=== PATIENT | male | born 1955 | race Caucasian/White ===

== ENCOUNTER 2021-05-22 08:00 | Inpatient (IN) ==
[2021-05-22] MEDS ORDERED: NITROGLYCERIN SL 0.4 MG TABLET SL PRN (09:50)
[2021-05-22] MEDS ORDERED: GLUCAGON 1 MG VIAL IM PRN (09:50)
[2021-05-22] MEDS ORDERED: CLORAZEPATE 3.75 MG TABLET PO PRN (09:50)
[2021-05-22] MEDS ORDERED: DEXTROSE 50% 25 GM/50 ML VIAL IV PRN (09:50)
[2021-05-22] MEDS ORDERED: MORPHINE 2 MG/1 ML SYRINGE IV PRN (09:50)
[2021-05-22 09:54] LABS: Basophils % 0.6 % (0.0-0.8); Eosinophils # 0.1 10*3/uL (0.0-0.87); Eosinophils % 1.4 % (0.00-10.9); Hematocrit 42.4 VOL% (42.0-52.0); Hemoglobin 14.3 GM/DL (14.0-18.0); Immature Granulocytes % 0.2 %; Immature Granulocytes Absolute 0.01 #; Lymphocytes # 1.9 10*3/uL (1.4-4.0); Lymphocytes % 37.4 % (21.2-54.2); Mean Corpuscular HGB Conc 33.7 GM/DL (32-36); Mean Platelet Volume 9.6 FL (9.6-12.0); Monocytes % 7.4 % (1.7-12.7); Platelet Count 118 T/CUMM (130-400); Red Blood Count 4.99 MC/CUMM (3.8-5.5); Red Cell Distribution Width 12.5 % (9.3-17.3); White Blood Count 5.1 T/CUMM (4-12)
[2021-05-22] MEDS ORDERED: SODIUM CHLORIDE 0.9% 1,000 ML IV SCH (10:00)
[2021-05-22 10:06] LABS: Albumin 3.6 G/DL (3.4-5.0); Bilirubin,Total 0.5 MG/DL (0.20-1.00); Calcium 9.1 MG/DL (8.5-10.1); Total Protein 7.1 G/DL (6.4-8.2)
[2021-05-22] MEDS: INSULIN REGULAR 100 UNIT/ML SUBCUT SCH ×4 (13:25→21:02)
[2021-05-22] MEDS: CHLORHEXIDINE 4% SOLN 118 ML BOTTLE TOP SCH ×3 (13:25→21:02)
[2021-05-22] MEDS: CHLORHEXIDINE 0.12% ORAL RINSE 60 ML BOTTLE SWISH/SPIT SCH ×2 (13:26→21:02)
[2021-05-22 16:56] LABS: ABG Base Excess 0.7 MMOL/L (-2.5-2.5); ABG Oxygen Saturation 95.9 % (95-100); ABG PCO2 39.3 MM HG (35-48); ABG PH 7.422 (7.35-7.45); ABG PO2 81.6 MM HG (80-95); ABG TCO2 26.2 MMOL/L (23-27)
[2021-05-23] MEDS ORDERED: PAPAVERINE 60 MG/2 ML VIAL ONE (04:20)
[2021-05-23] MEDS ORDERED: VANCOMYCIN 500 MG VIAL ONE (04:21)
[2021-05-23] MEDS ORDERED: VANCOMYCIN 1,000 MG VIAL ONE (04:21)
[2021-05-23] MEDS ORDERED: CEFUROXIME INJ 1,500 MG in SODIUM CHLORIDE 0.9% 100 ML IV ONE (05:00)
[2021-05-23] MEDS ORDERED: MINERAL OIL/PETROLATUM OPH OINT 3.5 GM TUBE ONE (05:47)
[2021-05-23] MEDS ORDERED: PHENYLEPHRINE DRIP 20 MG/250 ML PREMIX IV ONE (05:47)
[2021-05-23] MEDS ORDERED: LIDOCAINE 2% 5 ML VIAL ONE ×2 (05:47→10:26)
[2021-05-23] MEDS ORDERED: LACTATED RINGERS 1,000 ML IV ONE (05:47)
[2021-05-23] MEDS ORDERED: NITROGLYCERIN DRIP 50 MG/250 ML BOTTLE IV ONE (05:47)
[2021-05-23] MEDS ORDERED: CALCIUM CHLORIDE 1,000 MG/10 ML VIAL IV ONE ×2 (05:47→10:34)
[2021-05-23] MEDS ORDERED: SEVOFLURANE 1 UNIT/15 MINUTE INH ONE (05:47)
[2021-05-23] MEDS ORDERED: SODIUM CHLORIDE 0.9% 1,000 ML IV ONE (05:47)
[2021-05-23] MEDS ORDERED: FUROSEMIDE 20 MG/2 ML VIAL ONE ×2 (05:47→10:27)
[2021-05-23] MEDS ORDERED: VECURONIUM 10 MG VIAL IV ONE (05:47)
[2021-05-23] MEDS ORDERED: ePHEDrine 50 MG/ML VIAL ONE (05:47)
[2021-05-23] MEDS ORDERED: HEPARIN/NACL 0.9% 2 UNITS/ML 1,000 UNIT/500 ML BAG IV ONE (05:47)
[2021-05-23] MEDS ORDERED: AMINOCAPROIC ACID 5,000 MG/20 ML VIAL ONE (05:47)
[2021-05-23] MEDS ORDERED: ETOMIDATE 40 MG/20 ML VIAL IV ONE (05:47)
[2021-05-23] MEDS ORDERED: SODIUM CHLORIDE 0.9% 250 ML IV ONE (05:47)
[2021-05-23] MEDS ORDERED: SUFentanil 250 MCG/5 ML AMP ONE (05:48)
[2021-05-23] MEDS ORDERED: MIDAZOLAM 10 MG/2 ML VIAL ONE ×3 (05:48)
[2021-05-23] MEDS ORDERED: FAMOTIDINE 20 MG TABLET PO ONE (06:00)
[2021-05-23] MEDS ORDERED: DIAZEPAM 5 MG TABLET PO ONE (06:00)
[2021-05-23] MEDS ORDERED: SODIUM BICARBONATE 50 MEQ/50 ML VIAL IV ONE ×2 (07:13→10:27)
[2021-05-23] MEDS ORDERED: CALCIUM CHLORIDE 1,000 MG/10 ML SYRINGE IV ONE (07:14)
[2021-05-23] MEDS ORDERED: POTASSIUM CHLORIDE RIDER 20 MEQ/100 ML PREMIX IV ONE (07:14)
[2021-05-23] MEDS ORDERED: NITROPRUSSIDE 50 MG/2 ML VIAL ONE (07:14)
[2021-05-23] MEDS ORDERED: PHENYLEPHRINE DRIP 40 MG/250 ML PREMIX IV ONE (07:14)
[2021-05-23 07:38] LABS: ABG Base Excess 0.8 MMOL/L (-2.5-2.5); ABG HCO3 25.2 MMOL/L (20-26); ABG PCO2 38.7 MM HG (35-48); ABG TCO2 21.4 MMOL/L (23-27); Glucose Heart Surgery 190 MG/DL (74-106); Hematocrit Heart Surgery 44.8 PERCENT (42-52); Hemoglobin Heart Surgery 14.6 G/DL (14.0-18.0); Ionized Calcium Arterial 1.18 MMOL/L (1.21-1.46); PCO2 Patient Temp Arterial 38.7 MMHG; Patient Temperature 37 CELCIUS; Sodium Heart/CVR 138 MMOL/L (135-145)
[2021-05-23 07:56] LABS: Bacteria,Urine Occasional /HPF (Few); Bilirubin,Urine Negative (Negative); Blood, Urine Small mg/dL (Negative); Glucose,Urine (UA) Negative (Negative); Ketones,Urine Negative (Negative); Mucus,Urine Occasional /LPF (Occasional); Nitrite,Urine Negative (Negative); Protein,Urine Negative; RBC,Urine 5 /HPF (0-4); Squamous Epithelial Cell,Urine Few /HPF (0-10); Urine Appearance CLEAR (Clear); Urine Color Yellow (Yellow); Urine Urobilinogen < 2.0 EU/DL (0.2-1.0)
[2021-05-23] MEDS ORDERED: ALBUMIN 5% 12.5 GM/250 ML VIAL IV ONE (07:59)
[2021-05-23] MEDS: CHLORHEXIDINE 0.12% ORAL RINSE 60 ML BOTTLE SWISH/SPIT SCH ×2 (08:05→20:49)
[2021-05-23] MEDS: INSULIN REGULAR 100 UNIT/ML SUBCUT SCH ×2 (08:05→11:48)
[2021-05-23] MEDS ORDERED: PHENYLEPHRINE 10 MG/1 ML VIAL IV ONE (09:02)
[2021-05-23 09:10] LABS: Hematocrit Heart Surgery 29.5 PERCENT (42-52); Hemoglobin Heart Surgery 9.5 G/DL (14.0-18.0); PCO2 Patient Temp Venous 38.3 MM HG; PH Patient Temp Venous 7.422; PO2 Patient Temp Venous 36.7 MM HG; Potassium Heart/CVR 4.1 MMOL/L (3.5-5.1); VBG Base Excess 0.7 MEQ/L (0-4); VBG HCO3 24.7 MEQ/L (24-28); VBG Oxygen Saturation 76.7 %; VBG PCO2 42.2 MMHG (41-51); VBG PH 7.393; VBG PO2 42.2 MMHG (17-40); VBG Total CO2 23.7 MMOL/L
[2021-05-23 09:40] LABS: Hematocrit Heart Surgery 31.8 PERCENT (42-52); Hemoglobin Heart Surgery 10.3 G/DL (14.0-18.0); PCO2 Patient Temp Venous 38.6 MM HG; PH Patient Temp Venous 7.421; PO2 Patient Temp Venous 38.3 MM HG; Potassium Heart/CVR 4.7 MMOL/L (3.5-5.1); VBG Base Excess 0.7 MEQ/L (0-4); VBG HCO3 24.6 MEQ/L (24-28); VBG Oxygen Saturation 72.6 %; VBG PCO2 38.6 MMHG (41-51); VBG PH 7.421; VBG PO2 38.3 MMHG (17-40); VBG Total CO2 22.8 MMOL/L
[2021-05-23 10:23] LABS: ABG Base Excess -0.2 MMOL/L (-2.5-2.5); ABG HCO3 24.3 MMOL/L (20-26); ABG PCO2 36.7 MM HG (35-48); ABG PH 7.423 (7.35-7.45); ABG TCO2 21.3 MMOL/L (23-27); Glucose Heart Surgery 302 MG/DL (74-106); Hemoglobin Heart Surgery 11.3 G/DL (14.0-18.0); Ionized Calcium Arterial 1.25 MMOL/L (1.21-1.46); PCO2 Patient Temp Arterial 36.7 MMHG; PH Patient Temp Arterial 7.423; Patient Temperature 37 CELCIUS; Sodium Heart/CVR 134 MMOL/L (135-145)
[2021-05-23] MEDS ORDERED: ALBUMIN 25% 25 GM/100 ML VIAL IV ONE (10:25)
[2021-05-23] MEDS ORDERED: DEXTROSE 5% KCL 20 MEQ 20 MEQ/1,000 ML BAG IV ONE (10:26)
[2021-05-23] MEDS ORDERED: methylPREDNISolone SOD SUC 1,000 MG/8 ML VIAL ONE (10:26)
[2021-05-23] MEDS ORDERED: MAGNESIUM SULFATE 5 GM/10 ML VIAL IV ONE (10:26)
[2021-05-23] MEDS ORDERED: PROTAMINE SULFATE 250 MG/25 ML VIAL IV ONE (10:26)
[2021-05-23] MEDS ORDERED: HEPARIN 10,000 UNIT/10 ML VIAL ONE (10:27)
[2021-05-23] MEDS ORDERED: MANNITOL 12.5 GM/50 ML VIAL IV ONE (10:27)
[2021-05-23] MEDS ORDERED: PROTAMINE SULFATE 50 MG/5 ML VIAL IV ONE (10:27)
[2021-05-23] MEDS ORDERED: MAGNESIUM SULF RIDER 4 GM/100 ML PREMIX IV PRN (11:31)
[2021-05-23] MEDS ORDERED: ACETAMINOPHEN 650 MG SUPP RECTAL PRN (11:31)
[2021-05-23] MEDS ORDERED: ONDANSETRON 4 MG/2 ML VIAL IV PRN (11:31)
[2021-05-23] MEDS ORDERED: MIDAZOLAM 2 MG/2 ML VIAL IV PRN (11:31)
[2021-05-23] MEDS ORDERED: DEXTROSE 50% 25 GM/50 ML VIAL IV PRN ×2 (11:31)
[2021-05-23] MEDS ORDERED: INSULIN REGULAR 100 UNIT/ML IV ONE (11:31)
[2021-05-23] MEDS ORDERED: MAGNESIUM SULF RIDER 2 GM/50 ML PREMIX IV PRN (11:31)
[2021-05-23] MEDS ORDERED: MORPHINE 10 MG/1 ML VIAL IV PRN (11:31)
[2021-05-23] MEDS ORDERED: CALCIUM CHLORIDE 1,000 MG/10 ML SYRINGE IV PRN (11:31)
[2021-05-23] MEDS ORDERED: POTASSIUM CHLORIDE RIDER 10 MEQ/100 ML PREMIX IV PRN (11:31)
[2021-05-23] MEDS ORDERED: MIDAZOLAM 10 MG/2 ML VIAL IV PRN (11:31)
[2021-05-23] MEDS ORDERED: LACTATED RINGERS 250 ML IV PRN (11:31)
[2021-05-23] MEDS ORDERED: NITROPRUSSIDE 100 MG in DEXTROSE 5% 250 ML IV PRN (11:31)
[2021-05-23] MEDS ORDERED: VECURONIUM 10 MG VIAL IV PRN ×2 (11:31)
[2021-05-23] MEDS ORDERED: PHENYLEPHRINE DRIP 40 MG/250 ML PREMIX IV PRN (11:31)
[2021-05-23 11:35] LABS: Basophils % 0.2 % (0.0-0.8); Eosinophils % 0.3 % (0.00-10.9); Hematocrit 34.4 VOL% (42.0-52.0); Hemoglobin 11.8 GM/DL (14.0-18.0); Immature Granulocytes % 0.7 %; Immature Granulocytes Absolute 0.06 #; Mean Corpuscular HGB Conc 34.3 GM/DL (32-36); Mean Corpuscular Volume 83.1 FL (87-102); Mean Platelet Volume 9.2 FL (9.6-12.0); Monocytes % 5.9 % (1.7-12.7); Neutrophils % 81.9 % (38.7-73.9); Platelet Count 107 T/CUMM (130-400); Red Blood Count 4.14 MC/CUMM (3.8-5.5); Red Cell Distribution Width 12.6 % (9.3-17.3); White Blood Count 8.6 T/CUMM (4-12)
[2021-05-23 11:36] LABS: ABG Base Excess 0.6 MMOL/L (-2.5-2.5); ABG HCO3 23.6 MMOL/L (20-26); ABG Oxygen Saturation 98.9 % (95-100); ABG PCO2 32.9 MM HG (35-48); ABG PH 7.474 (7.35-7.45); ABG PO2 192.8 MM HG (80-95); ABG TCO2 24.6 MMOL/L (23-27); Glucose Heart Surgery 268 MG/DL (74-106); Hemoglobin Heart Surgery 12.5 G/DL (14.0-18.0); Potassium Heart/CVR 3.8 MMOL/L (3.5-5.1)
[2021-05-23] MEDS: SODIUM CHLORIDE 0.45% 1,000 ML IV SCH ×2 (11:45→11:46)
[2021-05-23] MEDS: POTASSIUM CHLORIDE RIDER 20 MEQ/100 ML PREMIX IV PRN ×2 (11:46→16:22)
[2021-05-23 11:47] LABS: INR 1.1; PT Patient Result 12.3 SECS (10.5-12.0); Partial Thromboplastin Time 24.2 SECS (23.8-32.1)
[2021-05-23 11:57] LABS: Bilirubin,Total 1.2 MG/DL (0.20-1.00); CKMB % 7.2 %; Calcium 10.3 MG/DL (8.5-10.1); Osmolality,Calculated 283.8 MOS/KG (273-304); Potassium 3.8 MMOL/L (3.5-5.1); Total Protein 6.4 G/DL (6.4-8.2)
[2021-05-23 12:13] LABS: High Sensitive Troponin I* 3951.7 ng/L (0-78)
[2021-05-23] MEDS: INSULIN REGULAR DRIP 100 ML IV SCH ×2 (12:24→21:31)
[2021-05-23] MEDS: KETOROLAC 30 MG/1 ML VIAL IV SCH ×3 (12:32→23:38)
[2021-05-23] MEDS: ALBUMIN 5% 12.5 GM/250 ML VIAL IV PRN ×2 (12:55→22:28)
[2021-05-23] MEDS: LACTATED RINGERS 1,000 ML IV PRN ×2 (13:10→23:00)
[2021-05-23 13:26] LABS: ABG Base Excess -0.4 MMOL/L (-2.5-2.5); ABG HCO3 24.1 MMOL/L (20-26); ABG Oxygen Saturation 99.3 % (95-100); ABG PCO2 34.8 MM HG (35-48); ABG PH 7.434 (7.35-7.45); ABG TCO2 20.5 MMOL/L (23-27); Glucose Heart Surgery 301 MG/DL (74-106); Hemoglobin Heart Surgery 12.4 G/DL (14.0-18.0); Potassium Heart/CVR 4.2 MMOL/L (3.5-5.1)
[2021-05-23 16:09] LABS: ABG Base Excess -2.1 MMOL/L (-2.5-2.5); ABG HCO3 21.4 MMOL/L (20-26); ABG Oxygen Saturation 98.2 % (95-100); ABG PCO2 32.6 MM HG (35-48); ABG PH 7.436 (7.35-7.45); ABG PO2 147.6 MM HG (80-95); ABG TCO2 22.4 MMOL/L (23-27); Glucose Heart Surgery 218 MG/DL (74-106); Hemoglobin Heart Surgery 11.4 G/DL (14.0-18.0); Potassium Heart/CVR 3.6 MMOL/L (3.5-5.1)
[2021-05-23 17:26] LABS: ABG Base Excess -3.3 MMOL/L (-2.5-2.5); ABG HCO3 21.6 MMOL/L (20-26); ABG Oxygen Saturation 98.5 % (95-100); ABG PCO2 39.2 MM HG (35-48); ABG PH 7.355 (7.35-7.45); ABG TCO2 19.8 MMOL/L (23-27); Glucose Heart Surgery 209 MG/DL (74-106); Hematocrit Heart Surgery 33.1 PERCENT (42-52); Hemoglobin Heart Surgery 10.7 G/DL (14.0-18.0); Potassium Heart/CVR 4.4 MMOL/L (3.5-5.1)
[2021-05-23] MEDS: INSULIN REGULAR 100 UNIT/ML IV PRN (20:36)
[2021-05-23] MEDS: CEFUROXIME INJ 1,500 MG in SODIUM CHLORIDE 0.9% 100 ML IV SCH (20:49)
[2021-05-23 20:55] LABS: CKMB % 6.2 %
[2021-05-23 21:03] LABS: High Sensitive Troponin I* 9923.6 ng/L (0-78)
[2021-05-23] MEDS ORDERED: FUROSEMIDE 40 MG/4 ML VIAL IV ONE (22:28)
[2021-05-24] MEDS: INSULIN REGULAR 100 UNIT/ML IV PRN ×2 (00:44→02:40)
[2021-05-24 04:23] LABS: ABG Base Excess 0.4 MMOL/L (-2.5-2.5); ABG HCO3 23.9 MMOL/L (20-26); ABG Oxygen Saturation 95.3 % (95-100); ABG PCO2 34.3 MM HG (35-48); ABG PH 7.461 (7.35-7.45); ABG PO2 76.9 MM HG (80-95); Glucose Heart Surgery 144 MG/DL (74-106); Hemoglobin Heart Surgery 10.2 G/DL (14.0-18.0); Potassium Heart/CVR 3.9 MMOL/L (3.5-5.1)
[2021-05-24 04:25] LABS: Basophils % 0.1 % (0.0-0.8); Hematocrit 27.7 VOL% (42.0-52.0); Immature Granulocytes Absolute 0.12 #; Lymphocytes # 1.1 10*3/uL (1.4-4.0); Lymphocytes % 9.2 % (21.2-54.2); Mean Corpuscular HGB Conc 34.3 GM/DL (32-36); Mean Corpuscular Volume 83.9 FL (87-102); Mean Platelet Volume 9.1 FL (9.6-12.0); Monocytes % 5.7 % (1.7-12.7); Platelet Count 88 T/CUMM (130-400); Red Cell Distribution Width 12.8 % (9.3-17.3)
[2021-05-24 04:28] LABS: Hemoglobin 9.5 GM/DL (14.0-18.0); White Blood Count 12.2 T/CUMM (4-12)
[2021-05-24 04:47] LABS: Albumin 3.9 G/DL (3.4-5.0); Bilirubin,Direct 0.19 MG/DL (0.0-0.20); Bilirubin,Total 0.7 MG/DL (0.20-1.00); Calcium 8.7 MG/DL (8.5-10.1); Osmolality,Calculated 278.7 MOS/KG (273-304); Total Protein 6.2 G/DL (6.4-8.2)
[2021-05-24 04:49] LABS: CKMB % 7.3 %; High Sensitive Troponin I* 11057.6 ng/L (0-78)
[2021-05-24 04:55] LABS: Band Neutrophils 5 % (0-10); Lymphocytes 12 % (20-55); Segmented Neutrophils 77 % (50-85); Total Cells Counted 100
[2021-05-24 04:58] LABS: Microcytosis 2+
[2021-05-24 04:59] LABS: Anisocytosis 2+; Hypochromasia 1+; Platelet Estimate Decreased
[2021-05-24] MEDS: KETOROLAC 30 MG/1 ML VIAL IV SCH ×3 (06:14→18:52)
[2021-05-24] MEDS: CEFUROXIME INJ 1,500 MG in SODIUM CHLORIDE 0.9% 100 ML IV SCH ×2 (06:34→20:43)
[2021-05-24] MEDS ORDERED: MORPHINE 2 MG/1 ML SYRINGE ONE (11:35)
[2021-05-24 11:40] LABS: CKMB % 7.5 %
[2021-05-24 11:41] LABS: High Sensitive Troponin I* 12910.3 ng/L (0-78)
[2021-05-24] MEDS: CHLORHEXIDINE 0.12% ORAL RINSE 60 ML BOTTLE SWISH/SPIT SCH ×2 (13:13→20:58)
[2021-05-24] MEDS: SODIUM CHLORIDE 0.45% 1,000 ML IV SCH ×2 (13:13)
[2021-05-24] MEDS: INSULIN REGULAR DRIP 100 ML IV SCH (13:14)
[2021-05-24] MEDS: INSULIN REGULAR 100 UNIT/ML SUBCUT SCH (20:57)
[2021-05-25] MEDS: KETOROLAC 30 MG/1 ML VIAL IV SCH ×5 (00:46→23:54)
[2021-05-25] MEDS: INSULIN REGULAR 100 UNIT/ML SUBCUT SCH ×6 (00:46→20:22)
[2021-05-25 04:33] LABS: Basophils % 0.1 % (0.0-0.8); Hematocrit 26.6 VOL% (42.0-52.0); Hemoglobin 8.8 GM/DL (14.0-18.0); Immature Granulocytes % 0.7 %; Immature Granulocytes Absolute 0.08 #; Lymphocytes # 1.8 10*3/uL (1.4-4.0); Lymphocytes % 16.1 % (21.2-54.2); Mean Corpuscular HGB Conc 33.1 GM/DL (32-36); Mean Corpuscular Volume 87.8 FL (87-102); Mean Platelet Volume 9.8 FL (9.6-12.0); Monocytes % 7.4 % (1.7-12.7); Neutrophils % 75.7 % (38.7-73.9); Platelet Count 82 T/CUMM (130-400); Red Blood Count 3.03 MC/CUMM (3.8-5.5); Red Cell Distribution Width 13.1 % (9.3-17.3)
[2021-05-25 04:55] LABS: Hypochromasia 1+; Microcytosis 1+; Platelet Estimate Decreased
[2021-05-25 05:10] LABS: Albumin 3.3 G/DL (3.4-5.0); Bilirubin,Direct 0.18 MG/DL (0.0-0.20); Bilirubin,Total 1.1 MG/DL (0.20-1.00); Calcium 8.7 MG/DL (8.5-10.1); Potassium 4.2 MMOL/L (3.5-5.1); Total Protein 5.9 G/DL (6.4-8.2)
[2021-05-25] MEDS ORDERED: MORPHINE 2 MG/1 ML SYRINGE ONE (08:38)
[2021-05-25] MEDS ORDERED: MORPHINE 2 MG/1 ML SYRINGE IV ONE (08:45)
[2021-05-25] MEDS: CHLORHEXIDINE 0.12% ORAL RINSE 60 ML BOTTLE SWISH/SPIT SCH ×2 (10:11→20:22)
[2021-05-25] MEDS ORDERED: MAGNESIUM SULF RIDER 2 GM/50 ML PREMIX IV PRN (10:28)
[2021-05-25] MEDS ORDERED: KETOROLAC 30 MG/1 ML VIAL IV SCH (10:28)
[2021-05-25] MEDS ORDERED: MAGNESIUM SULF RIDER 4 GM/100 ML PREMIX IV PRN (10:28)
[2021-05-25] MEDS ORDERED: ACETAMINOPHEN 325 MG TABLET PO PRN (10:28)
[2021-05-25] MEDS ORDERED: DEXTROSE 50% 25 GM/50 ML VIAL IV PRN ×2 (10:28)
[2021-05-25] MEDS ORDERED: GLUCAGON 1 MG VIAL IM PRN ×2 (10:28)
[2021-05-25] MEDS ORDERED: SODIUM CHLOR 0.45% KCL 20 MEQ 20 MEQ/1,000 ML BAG IV SCH (10:28)
[2021-05-25] MEDS ORDERED: POTASSIUM CHLORIDE 20 MEQ TABLET PO PRN (10:28)
[2021-05-25] MEDS ORDERED: ALUMINUM/MAGNES/SIMETH MAX STR 30 ML UDCUP PO PRN (10:28)
[2021-05-25] MEDS ORDERED: ZALEPLON 5 MG CAPSULE PO PRN (10:28)
[2021-05-25] MEDS ORDERED: oxyCODONE/ACETAMINOPHEN 5-325 MG TABLET PO PRN (10:28)
[2021-05-25] MEDS ORDERED: ONDANSETRON 4 MG/2 ML VIAL IV PRN (10:28)
[2021-05-25] MEDS ORDERED: MORPHINE 2 MG/1 ML SYRINGE IV PRN (10:28)
[2021-05-25] MEDS ORDERED: MAGNESIUM HYDROXIDE SUSP 30 ML UDCUP PO PRN (10:28)
[2021-05-25] MEDS: metFORMIN 500 MG TABLET PO SCH (20:21)
[2021-05-25] MEDS: glipiZIDE 5 MG TABLET PO SCH (20:21)
[2021-05-25] MEDS ORDERED: carvediloL 3.125 MG TABLET PO SCH (21:00)
[2021-05-26 05:07] LABS: Basophils % 0.1 % (0.0-0.8); Eosinophils % 0.4 % (0.00-10.9); Hematocrit 27.5 VOL% (42.0-52.0); Hemoglobin 9.1 GM/DL (14.0-18.0); Immature Granulocytes % 0.5 %; Immature Granulocytes Absolute 0.05 #; Lymphocytes # 1.7 10*3/uL (1.4-4.0); Lymphocytes % 17.9 % (21.2-54.2); Mean Corpuscular HGB Conc 33.1 GM/DL (32-36); Mean Corpuscular Volume 87.9 FL (87-102); Mean Platelet Volume 10.2 FL (9.6-12.0); Monocytes % 7.3 % (1.7-12.7); Neutrophils % 73.8 % (38.7-73.9); Red Blood Count 3.13 MC/CUMM (3.8-5.5); Red Cell Distribution Width 12.9 % (9.3-17.3); White Blood Count 9.5 T/CUMM (4-12)
[2021-05-26 05:14] LABS: Platelet Count 95 T/CUMM (130-400)
[2021-05-26 05:30] LABS: Hypochromasia 1+; Microcytosis 1+; Platelet Estimate Decreased
[2021-05-26 05:35] LABS: Albumin 3.3 G/DL (3.4-5.0); Bilirubin,Direct 0.16 MG/DL (0.0-0.20); Bilirubin,Indirect 0.4 MG/DL (0.0-1.0); Bilirubin,Total 0.6 MG/DL (0.20-1.00); CKMB % 3.4 %; Calcium 8.6 MG/DL (8.5-10.1); High Sensitive Troponin I* 11380.3 ng/L (0-78); Osmolality,Calculated 282.8 MOS/KG (273-304); Potassium 4.2 MMOL/L (3.5-5.1); Total Protein 6.3 G/DL (6.4-8.2)
[2021-05-26] MEDS ORDERED: FUROSEMIDE 40 MG/4 ML VIAL IV ONE (06:00)
[2021-05-26] MEDS: KETOROLAC 30 MG/1 ML VIAL IV SCH ×3 (06:38→17:03)
[2021-05-26] MEDS ORDERED: PIOGLITAZONE 15 MG TABLET PO SCH (09:00)
[2021-05-26] MEDS: ASPIRIN CHEW 81 MG TABLET PO SCH (09:24)
[2021-05-26] MEDS: DAPAGLIFLOZIN 10 MG TABLET PO SCH (09:24)
[2021-05-26] MEDS: carvediloL 6.25 MG TABLET PO SCH ×2 (09:25→16:22)
[2021-05-26] MEDS: FERROUS SULFATE 325 MG TABLET PO SCH (09:25)
[2021-05-26] MEDS: SIMVASTATIN 20 MG TABLET PO SCH (09:25)
[2021-05-26] MEDS: DOCUSATE SODIUM 100 MG CAPSULE PO SCH (09:25)
[2021-05-26] MEDS: CHLORHEXIDINE 0.12% ORAL RINSE 60 ML BOTTLE SWISH/SPIT SCH ×2 (09:25→20:33)
[2021-05-26] MEDS: INSULIN GLARGINE 100 UNIT/ML SUBCUT SCH ×2 (09:25→20:32)
[2021-05-26] MEDS: glipiZIDE 5 MG TABLET PO SCH ×2 (09:25→20:32)
[2021-05-26] MEDS: INSULIN REGULAR 100 UNIT/ML SUBCUT SCH ×4 (09:26→20:33)
[2021-05-26] MEDS: PANTOPRAZOLE 40 MG TABLET PO SCH (09:29)
[2021-05-26] MEDS: metFORMIN 500 MG TABLET PO SCH ×2 (09:29→20:32)
[2021-05-27] MEDS: KETOROLAC 30 MG/1 ML VIAL IV SCH ×4 (00:26→17:50)
[2021-05-27 05:45] LABS: Basophils % 0.1 % (0.0-0.8); Eosinophils # 0.1 10*3/uL (0.0-0.87); Eosinophils % 1.6 % (0.00-10.9); Hematocrit 27.2 VOL% (42.0-52.0); Hemoglobin 8.8 GM/DL (14.0-18.0); Immature Granulocytes % 0.6 %; Immature Granulocytes Absolute 0.05 #; Lymphocytes # 2.1 10*3/uL (1.4-4.0); Lymphocytes % 23.3 % (21.2-54.2); Mean Corpuscular HGB Conc 32.4 GM/DL (32-36); Mean Corpuscular Volume 89.5 FL (87-102); Mean Platelet Volume 10.3 FL (9.6-12.0); Neutrophils % 65.4 % (38.7-73.9); Platelet Count 106 T/CUMM (130-400); Red Blood Count 3.04 MC/CUMM (3.8-5.5); Red Cell Distribution Width 12.8 % (9.3-17.3); White Blood Count 8.9 T/CUMM (4-12)
[2021-05-27 06:09] LABS: Eosinophils 1 % (0-10); Hypochromasia 1+; Lymphocytes 18 % (20-55); Microcytosis 1+; Platelet Estimate Decreased; Segmented Neutrophils 74 % (50-85); Total Cells Counted 100
[2021-05-27 06:10] LABS: Alanine Aminotransferase 30 U/L (16-61); Albumin 2.9 G/DL (3.4-5.0); Alkaline Phosphatase 40 U/L (45-117); Aspartate Amino Transferase 37 U/L (0-37); Bilirubin,Indirect 0.5 MG/DL (0.0-1.0); Blood Urea Nitrogen 29 MG/DL (7-18); Calcium 8.4 MG/DL (8.5-10.1); Carbon Dioxide 29 MMOL/L (21-32); Estimated Glom Filtration Rate 104 ML/MIN; Glucose 85 MG/DL (74-106); Osmolality,Calculated 283.4 MOS/KG (273-304); Potassium 3.7 MMOL/L (3.5-5.1); Sodium 140 MMOL/L (136-145); Total Protein 6.1 G/DL (6.4-8.2)
[2021-05-27] MEDS: metFORMIN 500 MG TABLET PO SCH ×2 (08:42→20:55)
[2021-05-27] MEDS: FERROUS SULFATE 325 MG TABLET PO SCH (08:42)
[2021-05-27] MEDS: DOCUSATE SODIUM 100 MG CAPSULE PO SCH (08:42)
[2021-05-27] MEDS: SIMVASTATIN 20 MG TABLET PO SCH (08:42)
[2021-05-27] MEDS: PANTOPRAZOLE 40 MG TABLET PO SCH (08:42)
[2021-05-27] MEDS: ASPIRIN CHEW 81 MG TABLET PO SCH (08:42)
[2021-05-27] MEDS: carvediloL 6.25 MG TABLET PO SCH ×2 (08:43→17:24)
[2021-05-27] MEDS: CHLORHEXIDINE 0.12% ORAL RINSE 60 ML BOTTLE SWISH/SPIT SCH ×2 (08:43→20:56)
[2021-05-27] MEDS: INSULIN REGULAR 100 UNIT/ML SUBCUT SCH ×4 (08:44→20:56)
[2021-05-27] MEDS ORDERED: (Semaglutide [Ozempic] 1 mg/dose (2 mg/1.5 mL) Pen Injector) SUBCUT SCH (09:00)
[2021-05-27] MEDS: DAPAGLIFLOZIN 10 MG TABLET PO SCH (09:04)
[2021-05-27] MEDS: glipiZIDE 5 MG TABLET PO SCH ×2 (09:04→20:55)
[2021-05-27] MEDS: INSULIN GLARGINE 100 UNIT/ML SUBCUT SCH ×2 (09:04→20:56)
[2021-05-28] MEDS: KETOROLAC 30 MG/1 ML VIAL IV SCH ×2 (01:21→06:01)
[2021-05-28 06:52] LABS: Basophils % 0.5 % (0.0-0.8); Eosinophils # 0.1 10*3/uL (0.0-0.87); Eosinophils % 1.7 % (0.00-10.9); Hematocrit 25.3 VOL% (42.0-52.0); Hemoglobin 8.4 GM/DL (14.0-18.0); Immature Granulocytes % 0.3 %; Immature Granulocytes Absolute 0.02 #; Lymphocytes # 1.8 10*3/uL (1.4-4.0); Lymphocytes % 29.8 % (21.2-54.2); Mean Corpuscular HGB Conc 33.2 GM/DL (32-36); Mean Corpuscular Volume 88.5 FL (87-102); Mean Platelet Volume 10.3 FL (9.6-12.0); Monocytes % 8.8 % (1.7-12.7); Neutrophils % 58.9 % (38.7-73.9); Platelet Count 116 T/CUMM (130-400); Red Blood Count 2.86 MC/CUMM (3.8-5.5); Red Cell Distribution Width 12.7 % (9.3-17.3); White Blood Count 5.9 T/CUMM (4-12)
[2021-05-28 07:07] LABS: Calcium 7.7 MG/DL (8.5-10.1); Osmolality,Calculated 284.1 MOS/KG (273-304); Potassium 3.8 MMOL/L (3.5-5.1)
[2021-05-28] MEDS: metFORMIN 500 MG TABLET PO SCH (08:24)
[2021-05-28] MEDS: FERROUS SULFATE 325 MG TABLET PO SCH (08:24)
[2021-05-28] MEDS: INSULIN GLARGINE 100 UNIT/ML SUBCUT SCH (08:24)
[2021-05-28] MEDS: glipiZIDE 5 MG TABLET PO SCH (08:24)
[2021-05-28] MEDS: PANTOPRAZOLE 40 MG TABLET PO SCH (08:25)
[2021-05-28] MEDS: DAPAGLIFLOZIN 10 MG TABLET PO SCH (08:25)
[2021-05-28] MEDS: carvediloL 6.25 MG TABLET PO SCH (08:25)
[2021-05-28] MEDS: DOCUSATE SODIUM 100 MG CAPSULE PO SCH (08:25)
[2021-05-28] MEDS: ASPIRIN CHEW 81 MG TABLET PO SCH (08:25)
[2021-05-28] MEDS: CHLORHEXIDINE 0.12% ORAL RINSE 60 ML BOTTLE SWISH/SPIT SCH (08:26)
[2021-05-28 12:04] VITALS: BP 101/59
[2021-05-28] MEDS: INSULIN REGULAR 100 UNIT/ML SUBCUT SCH ×2 (12:05→12:06)
[2021-05-28] MEDS ORDERED: ROSUVASTATIN 20 MG TABLET PO SCH (21:00)
== END 2021-05-28 11:50 | disposition home health service (06) | DRG 235 ==
LOC: N.TELES 08:49 → N.CVR 05-23 10:38 → N.ICU 05-24 06:41 → N.TELES 05-25 14:59